=== PATIENT | male | born 1955 | race Caucasian/White ===

== ENCOUNTER 2024-03-07 17:55 | Emergency (ER) | payer MEDICARE ==
[2024-03-07] MEDS ORDERED: LORAZEPAM 1 MG TABLET ONE (18:16)
[2024-03-07 18:39] LABS: Absolute Lymphocytes (CBC) 1.2 K/uL (0.7-4.9); Absolute Monocytes 0.3 K/uL (0.1-1.3); Absolute Neutrophil 3.9 K/uL (1.8-8.0); Basophils % 0.7 % (0-1.3); Eosinophils % 0.7 % (0-4.4); Hematocrit 39.8 % (39.6-49.0); Hemoglobin 13.7 g/dL (13.6-17.9); Lymphocytes % 22.4 % (15.3-44.8); MCH 29.3 pg (27.0-35.0); MCHC 34.3 g/dL (32.0-36.0); MCV 85.3 fL (80-100); MPV 7.5 fL (7.6-11.3); Monocytes % 6.1 % (3.3-12.3); Neutrophils % 70.1 % (41.7-73.7); Nucleated Red Blood Cells % 0.1 % (0-0); Platelets 297 thou/uL (152-406); RBC Red Blood Cell Count 4.67 M/uL (4.33-5.43); Red Cell Distribution Width 14.2 % (12.1-15.2)
[2024-03-07 18:52] LABS: PT Prothrombin Time 12.6 SECONDS (9.4-12.5); Protime INR 1.13
[2024-03-07 19:01] LABS: ALT/SGPT 18 U/L (16-61); AST/SGOT 11 U/L (15-37); Albumin 3.7 g/dL (3.4-5.0); Albumin/Globulin Ratio 1.1 (1.1-1.8); Alkaline Phosphatase 54 U/L (45-117); Anion Gap 12.3 mEq/L (5.0-15.0); BUN Blood Urea Nitrogen 20 mg/dL (7-18); Bicarbonate 25 mEq/L (21-32); Bilirubin Total 0.5 mg/dL (0.2-1.0); Globulin 3.4 g/dL (2.3-3.5); Glomerular Filtration Rate 67 ml/min (=/>90); Glucose Level 119 mg/dL (74-106); Magnesium 1.9 mg/dL (1.6-2.4); NT PRO-BNP 1291 pg/mL (<125); Potassium 3.3 mEq/L (3.5-5.1); Protein, Total 7.1 g/dL (6.4-8.2); Sodium Level 140 mEq/L (136-145); Troponin High Sensitivity 30.9 pg/mL (<58.9)
[2024-03-07 19:10] LABS: Bilirubin Direct < 0.2 mg/dL (0-0.2); Bilirubin Indirect, Calculated 0.3 mg/dL (0.2-0.8)
--- NOTE | 2024-03-07 19:12 | RAD REPORT ---
EXAMINATION: ONE VIEW CHEST XR CLINICAL INDICATION: Male, 68 years old. [facility] MAIN CHEST PAIN Bed Name: 18 TECHNIQUE: Frontal chest projection is submitted. Examination is limited by patient positioning and t echnique. COMPARISON: No prior exam. FINDINGS: The lungs are well inflated and clear. No pneumothorax or sizable effusion. The heart is normal in s ize. IMPRESSION: No acute intrathoracic abnormalities.
--- NOTE | 2024-03-07 19:47 | ER ---
Nurse's Notes [facility] Name: Domenico Sharma Age: 68 yrs Sex: Male : 1955 Arrival Date: 03/07/2024 Time: 17:55 Bed 18 Private MD: Diagnosis: Essential (primary) hypertension;Generalized anxiety disorder Presentation: 03/07 18:01 Chief complaint: EMS states: Pt toned out EMS for anxiety, on scene BP was over 200's rs5 systolic, 0.4 mg sublingual nitro adm en route, latest BP in 180's. Pt has had hypertension for several years but is noncompliant with meds. Denies chest pain, pressure, or SOB. Coronavirus screen: At this time, the client does not indicate any symptoms associated with coronavirus-19. Ebola Screen: No symptoms or risks identified at this time. Initial Sepsis Screen: Does the patient meet any 2 criteria? No. Patient's initial sepsis screen is negative. Does the patient have a suspected source of infection? No. Patient's initial sepsis screen is negative. Risk Assessment: Do you want to hurt yourself or someone else? Patient reports no desire to harm self or others. Onset of symptoms was March 07, 2024. 18:01 Method Of Arrival: EMS: [facility] rs5 18:01 Acuity: HEATH 3 rs5 Historical: - Allergies: 18:03 No Known Allergies; rs5 - PMHx: 18:03 Hypertensive disorder; rs5 - PSHx: 18:03 None; rs5 - Immunization history:: Adult Immunizations up to date. - Infectious Disease History:: Denies. - Social history:: Smoking status: Patient denies any tobacco usage or history of. Screenin:23 [facility] ED Fall Risk Assessment (Adult) History of falling in the last 3 months, kj2 including since admission No falls in past 3 months (0 pts). [facility] ED Fall Risk Assessment (Adult) Confusion or Disorientation No (0 pts) Intoxicated or Sedated No (0 pts) Impaired Gait No (0 pts) Mobility Assist Device Used No (0 pt) Altered Elimination No (0 pt) Score/Fall Risk Level 0 - 2 = Low Risk Maintained a safe environment, Educated pt \T\ family on fall prevention, incl call for assistance when getting out of bed, Hourly rounding (assess needs \T\ fall precautionary measures) done. Abuse screen: Denies threats or abuse. Denies injuries from another. Nutritional screening: No deficits noted. Tuberculosis screening: No symptoms or risk factors identified. Assessment: 18:01 General: Appears in no apparent distress. uncomfortable, Behavior is cooperative, rs5 anxious. Pain: Denies pain. Neuro: Level of Consciousness is awake, alert, obeys commands, Oriented to person, place, time, situation. Cardiovascular: Patient's skin is warm and dry. Respiratory: Airway is patent Respiratory effort is even, unlabored, Respiratory pattern is regular, symmetrical. GI: Abdomen is round non-distended, Abd is soft and non tender X 4 quads. : No signs and/or symptoms were reported regarding the genitourinary system. EENT: No signs and/or symptoms were reported regarding the EENT system. Derm: Skin is intact, Skin is pink, warm \T\ dry. Musculoskeletal: Range of motion: intact in all extremities. 19:16 Reassessment: Patient appears in no apparent distress at this time. Patient and/or kj2 family updated on plan of care and expected duration. Pain level reassessed. Patient is alert, oriented x 3, equal unlabored respirations, skin warm/dry/pink. Vital Signs: 18:01 BP 161 / 101; Pulse 88; Resp 17; Temp 98; Pulse Ox 99% on R/A; rs5 19:17 BP 157 / 106; Pulse 56; Resp 20; Temp 98.2; Pulse Ox 95% on R/A; kj2 20:25 BP 168 / 89; Pulse 60; Resp 18; Temp 98; Pulse Ox 100% on R/A; kj2 ED Course: 17:57 Patient arrived in ED. sb4 17:57 [facility]. sb4 17:57 Nupur Talavera MD is Attending Physician. sb4 18:00 Porfirio Weber, BRENDON is Primary Nurse. rs5 18:03 Triage completed. rs5 18:52 XRAY Chest (1 view) In Process Unspecified. EDMS 19:16 Report received from BRENDON Monroy. kj2 19:47 Charly Nance DO is Referral Physician. sb4 20:24 Arm band placed on Patient placed in an exam room. kj2 20:24 Bed in low position. Call light in reach. Side rails up X 1. Provided Education on: kj2 call light. 20:25 No provider procedures requiring assistance completed. IV discontinued, intact, kj2 bleeding controlled, No redness/swelling at site. Pressure dressing applied. Administered Medications: 18:20 Drug: LORazepam PO 1 mg PO once Route: PO; rs5 20:26 Follow up: Response: No adverse reaction kj2 Medication: 20:24 VIS not applicable for this client. kj2 Outcome: 19:47 Discharge ordered by . sb4 20:25 Discharged to home ambulatory, kj2 20:25 Condition: stable 20:25 Discharge instructions given to patient, Instructed on discharge instructions, follow up and referral plans. medication usage, Demonstrated understanding of instructions, follow-up care, medications, 20:27 Patient left the ED. kj2 Signatures: Dispatcher [employer] EDEv Escobedo PA-C PA-C sb4 Porfirio Weber RN RN rs5 Kareen Orr, BRENDON RN kj2 Corrections: (The following items were deleted from the chart) 18:03 18:03 PMHx: None; rs5 rs5
--- NOTE | 2024-03-07 19:47 | EDPHYS ---
Physician Documentation [facility] Name: Domenico Sharma Age: 68 yrs Sex: Male : 1955 Arrival Date: 03/07/2024 Time: 17:55 Bed 18 Private MD: ED Physician Nupur Talavera HPI: 03/07 18:33 This 68 yrs old Male presents to ER via EMS with complaints of anxiety. sb4 18:39 Patient states that he has been dealing with anxiety on and off for quite some time sb4 now. Most recently, he states that today he was just sitting at home when he started experiencing some anxiety. He states that when he gets anxiety, he feels like his throat is swelling. He called EMS for assistance, they noted his blood pressure to be 222/86. He does report a history of hypertension but has not taken any medication in years because it makes him feel lethargic. Historical: - Allergies: 18:03 No Known Allergies; rs5 - PMHx: 18:03 Hypertensive disorder; rs5 - PSHx: 18:03 None; rs5 - Immunization history:: Adult Immunizations up to date. - Infectious Disease History:: Denies. - Social history:: Smoking status: Patient denies any tobacco usage or history of. ROS: 18:39 Constitutional: Negative for fever, chills, and weight loss, sb4 18:39 Psych: Positive for anxiety, 18:39 All other systems are negative, Exam: 18:39 Constitutional: This is a well developed, well nourished patient who is awake, alert, sb4 and in no acute distress. Head/Face: Normocephalic, atraumatic. Eyes: Extra-ocular motions intact. Periorbital areas with no swelling, redness, or edema. ENT: Mucous membranes moist. Cardiovascular: Regular rate and rhythm with a normal S1 and S2. Respiratory: Lungs have equal breath sounds bilaterally, clear to auscultation and percussion. No rales, rhonchi or wheezes noted. No increased work of breathing, no retractions or nasal flaring. Abdomen/GI: Soft, non-tender, no distension. Skin: Warm, dry with normal turgor. Normal color with no rashes, no lesions, and no evidence of cellulitis. MS/ Extremity: Pulses equal, no cyanosis. Neurovascular intact. Full, normal range of motion. Vital Signs: 18:01 BP 161 / 101; Pulse 88; Resp 17; Temp 98; Pulse Ox 99% on R/A; rs5 19:17 BP 157 / 106; Pulse 56; Resp 20; Temp 98.2; Pulse Ox 95% on R/A; kj2 20:25 BP 168 / 89; Pulse 60; Resp 18; Temp 98; Pulse Ox 100% on R/A; kj2 MDM: 17:57 Patient medically screened. sb4 19:27 Data reviewed: vital signs, nurses notes, EMS record, lab test result(s), EKG, sb4 radiologic studies, and as a result, I will discharge patient. Consideration of Admission/Observation Escalation of care including admission/observation considered. Care significantly affected by the following chronic conditions: Hypertension. Counseling: I had a detailed discussion with the patient and/or guardian regarding the historical points, exam findings, and any diagnostic results supporting the discharge/admit diagnosis, the presence of at least one elevated blood pressure reading (>120/80) during this emergency department visit, lab results, radiology results, the need for outpatient follow up, for definitive care, to return to the emergency department if symptoms worsen or persist or if there are any questions or concerns that arise at home. 19:57 ED course: patient reports feeling much better, symptoms have resolved. he denies any sb4 chest pain, shortness of breath, headache, dizziness, blurry vision. advised to follow up with PCP regarding BP and anxiety management. 03/07 18:10 Order name: Basic Metabolic Panel; Complete Time: 19:11 4 03/07 18:10 Order name: CBC with Diff; Complete Time: 19:01 sb4 03/07 18:10 Order name: LFT's; Complete Time: 19:11 sb4 03/07 18:10 Order name: Magnesium; Complete Time: 19:11 sb4 03/07 18:10 Order name: NT PRO-BNP; Complete Time: 19:11 sb4 03/07 18:10 Order name: PT-INR; Complete Time: 18:53 sb4 03/07 18:10 Order name: Troponin HS; Complete Time: 19:11 sb4 03/07 18:10 Order name: TSH; Complete Time: 19:11 sb4 03/07 18:10 Order name: XRAY Chest (1 view); Complete Time: 19:13 sb4 03/07 18:10 Order name: EKG; Complete Time: 18:10 sb4 03/07 18:10 Order name: Cardiac monitoring; Complete Time: 18:45 sb4 03/07 18:10 Order name: EKG - Nurse/Tech; Complete Time: 18:45 sb4 03/07 18:10 Order name: IV Saline Lock; Complete Time: 18:45 sb4 03/07 18:10 Order name: Labs collected and sent; Complete Time: 18:45 sb4 03/07 18:10 Order name: O2 Per Protocol; Complete Time: 18:45 sb4 03/07 18:10 Order name: O2 Sat Monitoring; Complete Time: 18:45 sb4 EC:44 Rate is 56 beats/min. Rhythm is regular, Sinus bradycardia. OR interval is normal at sb4 172 msec. QRS interval is normal at 94 msec. QT interval is normal at 484 msec. No Q waves. T waves are Normal. No ST changes noted. Clinical impression: LVH and Sinus bradycardia. Interpreted by me. Reviewed by me. Administered Medications: 18:20 Drug: LORazepam PO 1 mg PO once Route: PO; rs5 20:26 Follow up: Response: No adverse reaction kj2 Disposition: 20:17 Co-signature as Attending Physician, Nupur Talavera MD I agree with the assessment and gb1 plan of care. I reviewed the patient's care provided by the Advanced Practice Provider and agree with the diagnosis and treatment plan. Disposition Summary: 03/07/24 19:47 Discharge Ordered Notes: Location: Home sb4 Problem: new sb4 Symptoms: have improved sb4 Condition: Stable sb4 Diagnosis - Essential (primary) hypertension sb4 - Generalized anxiety disorder sb4 Followup: sb4 - With: Charly Nance, - When: 2 - 3 days - Reason: Recheck today's complaints, Re-evaluation by your physician Discharge Instructions: - Discharge Summary Sheet sb4 - How to Take Your Blood Pressure, [id number] sb4 - Generalized Anxiety Disorder, Adult sb4 Forms: - Patient Portal Instructions sb4 - Leadership Thank You Letter sb4 Prescriptions: - Hydroxyzine HCl 25 mg Oral tablet - take 1 tablet ORAL route every 6 hours As needed; 30 tablet; Refills: 0, sb4 Product Selection Permitted Signatures: Dispatcher [employer] Ev Dorman, TEMI MEMBRENO sb4 Porfirio Weber RN RN rs5 Nupur Talavera MD MD gb1 Kareen Orr RN kj2 Corrections: (The following items were deleted from the chart) 18:03 18:03 PMHx: None; rs5 rs5
[2024-03-07 21:09] VITALS: BP 168/89; TEMP 98; O2SAT 100
--- NOTE | 2024-03-08 16:57 | EKG ---
Test Date: 2024-03-07 Test Time: 18:37:08 Show Host/Hostess: SHAN MEASUREMENT RESULTS: Intervals: Rate: 56 CA: 172 QRSD: 94 QT: 484 QTc: 467 [place]: P: 33 CA: 172 QRS: 24 T: 224 INTERPRETIVE STATEMENTS: Sinus bradycardia Left ventricular hypertrophy with repolarization abnormality Abnormal ECG No previous ECG available for comparison Electronically Signed On 03-08-24 16:54:53 CDT by Florentino Hudson
== END 2024-03-07 20:27 | disposition home or self-care (01) ==
LOC: ER 17:55
DX: I10 Essential (primary) hypertension (principal); F41.9 Anxiety disorder, unspecified
CPT/HCPCS: 36415; 71045; 80048; 80076; 83735; 83880; 84443; 84484; 85025; 85610; 93005; 99284